=== PATIENT | male | born 1990 | race Caucasian/White ===

== ENCOUNTER → 2021-08-06 | Outpatient (CLI) | payer OTHER ==
[2021-08-06 12:52] LABS: HEMOGLOBIN 15.9 gm/dl (14.0-17.5); RED BLOOD COUNT 5.24 M/UL (4.20-5.50)
[2021-08-06 13:22] LABS: BUN/CREATININE RATIO 6 (0-10)
== END ==
LOC: LAB 11:37
PROVIDERS: Nurse Practitioner Family
DX: G40.019 Localization-related (focal) (partial) idiopathic epilepsy and epileptic syndromes with seizures of localized onset, intractable, without status epilepticus (principal)
CPT/HCPCS: 36415; 80053; 80183; 80184; 85025